=== PATIENT | male | born 1990 | race Caucasian/White ===

== ENCOUNTER 2017-12-16 13:36 | Emergency (ER) | payer MEDICAID ==
[~2017-12-16] VITALS: Ht 175.3 cm; Wt 83.6 kg
[2017-12-16 13:58] VITALS: Ht 175.3 cm; Wt 83.6 kg
[2017-12-16 15:16] VITALS: BP 125/80
== END 2017-12-16 15:16 | disposition home or self-care (01) ==
LOC: ED 13:36
DX: L25.9 Unspecified contact dermatitis, unspecified cause (principal); L21.0 Seborrhea capitis; F17.210 Nicotine dependence, cigarettes, uncomplicated; F12.90 Cannabis use, unspecified, uncomplicated
CPT/HCPCS: 99406; J1200; J2930

== ENCOUNTER 2018-01-05 15:42 | Emergency (ER) | payer MEDICAID ==
[~2018-01-05] VITALS: Ht 177.8 cm; Wt 84.4 kg
[2018-01-05 15:44] VITALS: BP 121/86; Ht 177.8 cm; Wt 84.4 kg
== END 2018-01-05 17:15 | disposition home or self-care (01) ==
LOC: ED 15:42
DX: L20.9 Atopic dermatitis, unspecified (principal)
CPT/HCPCS: J1200; J2930